=== PATIENT | male | born 1970 | race Caucasian/White ===

== ENCOUNTER 2020-12-14 11:05 | Emergency (ER) | payer OTHER, SELFPAY ==
[2020-12-14 11:06] VITALS: BP 122/74; PULSE 78; RESP 16; TEMP 35.8; O2SAT 98; BMI 32.6
--- NOTE | 2020-12-14 11:23 | EKG12_ITS ---
Test Reason : SOB Blood Pressure : / mmHG Vent. Rate : 073 BPM Atrial Rate : 073 BPM P-R Int : 142 ms QRS Dur : 092 ms QT Int : 356 ms P-R-T Axes : 015 002 014 degrees QTc Int : 392 ms Normal sinus rhythm Normal ECG Confirmed by LISSA GRADY, ULISES ([id number]), digital editor EDDIE FERNANDEZ ([id number]) on 12/16/2020 11:40:10 A M Referred By: DARBY Confirmed By:NYLA ALCARAZ MD
--- NOTE | 2020-12-14 11:25 | EX.ED.DYSGE1 ---
HPI History of Present Illness Chief Complaint: Cold Sx Informant: patient Onset/Context/Timing Onset: Days (10 days) Context: Gradual Onset Timing: Waxes and wanes Current Severity: Mild Maximum Severity: Moderate Narrative Narrative: Patient presents with cough and shortness of breath. He believes he is getting over Covid. He has been ill for the past 10 days. He reports generalized fatigue, cough, shortness of breath. Today his shortness of breath and cough turned more painful and this concerned him. He has had low-grade fevers throughout his illness. He states his taste actually returned today. PFSH PFSH no medical history Home Medications dexamethasone [Decadron] 6 mg PO DAILY #5 tab 12/14/20 [Rx Last Taken Unknown] Allergy/AdvReac Type Severity Reaction Status Date / Time No Known Allergies Allergy Verified 12/14/20 11:09 Social History Smoking Status: Never smoker ROS ROS ED Constitutional Constitutional ED: Reports fever(s); Denies chills Eyes Eyes: Denies change in vision ENT ENT ED: Denies ear pain or rhinorrhea Cardiovascular Cardiovascular: Reports chest pain; Denies palpitations or racing heartbeat Respiratory/Chest Respiratory/Chest: Reports cough and dyspnea; Denies dyspnea on exertion or sputum Gastrointestinal Gastrointestinal: Denies abdominal pain, diarrhea, nausea or vomiting Genitourinary Genitourinary ED: Denies dysuria Integumentary Denies rash Neurologic Neurologic: Denies headache(s) Psychiatric Psychiatric: Denies anxiety Endocrine Endocrinology: Denies polydipsia or polyuria EXAM Physical Exam Const Vital Signs: 12/14/20 11:06 12/14/20 11:37 12/14/20 12:07 Temperature 96.5 F L Temperature Source Temporal Pulse Rate 78 80 Respiratory Rate 16 17 Respiratory Effort Normal Non-Labored Respiratory Pattern Normal Normal Blood Pressure 122/74 H Blood Pressure Mean 90 Pulse Ox 98 97 Oxygen Delivery Method Room Air Room Air 12/14/20 13:06 12/14/20 13:09 12/14/20 14:08 Temperature 98.3 F Temperature Source Oral Pulse Rate 69 69 78 Respiratory Rate 16 16 16 Respiratory Effort Respiratory Pattern Blood Pressure 99/82 H 99/82 H 121/83 H Blood Pressure Mean 87 87 Pulse Ox 98 98 96 Oxygen Delivery Method Room Air Positive well nourished and well developed General Appearance ED: well developed HEENT Reports moist mucous membranes Eyes PERRL and EOMs intact bilaterally Neck no lymphadenopathy and supple Chest Wall inspection of chest normal and palpation of chest normal Resp normal respiratory effort and clear to auscultation bilaterally Cardio regular rate and regular rhythm GI normal to inspection, nondistended, normoactive bowel sounds and non-tender Extremity normal to inspection General Extremety ED: Yes tenderness Neuro oriented x3 Sensorium / Orientation: alert Skin no rashes or lesions noted MDM MDM MDM Narrative Medical decision making narrative: Patient placed on registered nurse cardiac. Patient's O2 sat remained in the mid 90s throughout his ED stay. Lab Data Attestation: I reviewed the patient's lab results. Labs: Laboratory Results - last 24 hr 12/14/20 12/14/20 12/14/20 11:35 11:47 11:47 WBC 2.6 L RBC 4.86 Hgb 14.7 Hct 44.1 MCV 90.7 MCH 30.2 MCHC 33.3 RDW Std Deviation 39.8 RDW Coeff of Bulmaro 12.0 Plt Count 141 L MPV 9.8 Immature Gran % (Auto) 1.100 H Neut % (Auto) 58.6 Lymph % (Auto) 29.5 [place] % (Auto) 10.0 Eos % (Auto) 0.4 Baso % (Auto) 0.4 Absolute Neuts (auto) 1.5 L Absolute Lymphs (auto) 0.77 L Nucleated RBC % 0 D-Dimer Quant (PE/DVT) 0.72 H* Sodium Potassium Chloride Carbon Dioxide Anion Gap BUN Creatinine Estim Creat Clear Calc Est GFR (MDRD) Af Amer Est GFR (MDRD) Non-Af BUN/Creatinine Ratio Glucose Calcium COVID-19 ([facility]) Detected 12/14/20 11:47 WBC RBC Hgb Hct MCV MCH MCHC RDW Std Deviation RDW Coeff of Bulmaro Plt Count MPV Immature Gran % (Auto) Neut % (Auto) Lymph % (Auto) [place] % (Auto) Eos % (Auto) Baso % (Auto) Absolute Neuts (auto) Absolute Lymphs (auto) Nucleated RBC % D-Dimer Quant (PE/DVT) Sodium 140 Potassium 4.1 Chloride 105 Carbon Dioxide 31.0 Anion Gap 4 L BUN 11 Creatinine 0.99 Estim Creat Clear Calc 87.32 Est GFR (MDRD) Af Amer 104 Est GFR (MDRD) Non-Af 86 BUN/Creatinine Ratio 11.1 Glucose 76 Calcium 9.0 COVID-19 ([facility]) Radiography Chest X-Ray - ED: 1 View, Read by ED Physician, Normal, Heart, Lungs and Mediastinum Diagnostic Testing: Radiology Impression Chest X-Ray 12/14/20 12:01 IMPRESSION: Normal x-ray examination of the chest. Electronically Signed: Severo Duarte MD at 12:28 EDT , Service support , Chest CTA 12/14/20 13:21 IMPRESSION: No demonstrated PE, or thoracic aortic aneurysm or dissection Diffuse interstitial and airspace opacifications, in the periphery of both lung arreaga. No demonstrated effusions. Differential as described above Chronic bronchitis Electronically Signed: Severo Duarte MD at 13:40 EDT , Service support , EKG Initial EKG: Attestation: I personally reviewed and interpreted this EKG as follows: Interpretation: Sinus Rhythm (Sinus at 73 with no acute ischemia.) Treatment and Re-Evaluation Comments:: Test results discussed with the patient. CBC does reveal leukopenia consistent with a viral infection. D-dimer is elevated. CTA of the chest reveals no evidence of PE but diffuse interstitial and airspace opacifications in the periphery. This is all consistent with Covid. Covid PCR still pending at this time. Patient is not hypoxic and can be treated at home. Patient will be given Decadron here with 4 additional days at home. He has a pulse ox meter and was given return instructions. Addendum: Patient's Covid PCR later returned positive. I did call the patient to update him on his findings. Discharge Plan Triage Chief Complaint: Cold Sx ED Provider: Arcelia Cardona Dx/Rx/DC Orders Clinical Impression: Acute viral syndrome, COVID-19 Instructions: Coronavirus Disease 2019 (COVID-19): Overview, Coronavirus Disease 2019 (COVID-19): Caring for Yourself or Others, ED Viral Syndrome (Adult) Prescriptions: New dexamethasone [Decadron] 6 mg tablet 6 mg PO DAILY Qty: 5 RF: 0 Primary Care Provider: Care Physician,No Primary Referrals: Claribel Smith MD [STAFF PHYSICIAN] - 1-2 Weeks Care Physician,No Primary [Primary Care Provider] - Disposition Disposition: Home, self care Discharge Date/Time: 12/14/20 14:10
--- NOTE | 2020-12-14 11:30 | NURSING ---
NO OLD EKGS
[2020-12-14] MEDS: dexAMETHasone 4 MG Tablet 6 MG PO (11:41)
[2020-12-14 12:01] LABS: Absolute Lymphocyte Count 0.77 X10^3/uL (0.83-4.51); Absolute Neutrophil Count 1.5 X10^3/uL (2.0-7.7); Basophil# 0.01 X10^3/uL; Basophil% 0.4 % (0-1); Eosinophil# 0.01 X10^3/uL; Eosinophils% 0.4 % (0-5); Hematocrit 44.1 % (40-54); Hemoglobin 14.7 g/dL (13.0-16.5); Lymphocyte # 0.77 X10^3/ul (0.83-4.51); Lymphocyte % 29.5 % (19-41); Mean Corp Hgb Conc 33.3 g/dL (32-36); Mean Corpuscular Hgb 30.2 pg (27.0-32.0); Mean Corpuscular Volume 90.7 fL (80-94); Mean Platelet Vol. 9.8 fl (6.2-12.0); Monocyte# 0.26 X10^3/uL; NRBC Flagged by Analyzer 0 % (0-5); Neutrophil # 1.53 X10^3/uL (2.7-7.7); Neutrophil % 58.6 % (47-70); Platelet Count 141 K/mm3 (150-450); RBC Distribution Width SD 39.8 fl (35.1-43.9); Red Blood Count 4.86 M/mm3 (4.6-6.2); White Blood Count 2.6 K/mm3 (4.4-11.0)
--- NOTE | 2020-12-14 12:01 | RAD_ITS ---
STUDY: X-RAY CHEST REASON FOR EXAM: Male, 50 years old. Substernal chest pain TECHNIQUE: Single AP portable view of the chest. COMPARISON: None. FINDINGS: EKG leads overlie the chest The lungs are clear and expanded. There is no demonstrated pleural abnormality. Normal size heart. Normal mediastinum and kailey. Normal visualized pulmonary arteries. Normal visualized aortic arch and descending thoracic aorta. Normal visualized thoracic spine. Normal visualized ribs, clavicles, and shoulders. There is no demonstrated abnormality of the visualized soft tissue structures of the upper abdomen. RAD/Chest 1 View (Portable) IMPRESSION: Normal x-ray examination of the chest. Electronically Signed: Severo Duarte MD at 12:28 EDT , Service support ,
[2020-12-14] MEDS: Albuterol Sulfate 8 gm Inhaler (60 puffs) 2 PUFF INHALATION (12:03)
[2020-12-14 12:07] VITALS: PULSE 80; RESP 17; O2SAT 97
[2020-12-14 12:13] LABS: Anion Gap 4 (5-15); BUN 11 mg/dL (7-18); BUN/Creat Ratio 11.1 RATIO (10-20); Chloride 105 mmol/L (98-107); Creatinine, Serum 0.99 mg/dL (0.70-1.30); EST Glomerular Filtration Rate 86 mL/min (>60); Est Glom Filt Rate - Afr Amer 104 mL/min (>60); Estimated Creatinine Clearance 87.32 ml/min; Glucose 76 mg/dL (74-106); Potassium 4.1 mmol/L (3.5-5.1); Sodium Level 140 mmol/L (136-145)
[2020-12-14 12:23] LABS: D-Dimer Quantitative (DVT/PE) 0.72 FEU/ug/m (0.27-0.49)
[2020-12-14 13:06] VITALS: BP 99/82; PULSE 69; RESP 16; O2SAT 98
[2020-12-14 13:09] VITALS: BP 99/82; PULSE 69; RESP 16; TEMP 36.8; O2SAT 98
--- NOTE | 2020-12-14 13:21 | CT_ITS ---
STUDY: CTA CHEST REASON FOR EXAM: Male, 50 years old. Worsening shortness of breath RADIATION DOSAGE (If Supplied By Facility): CTDIvol = ( 10.52 ) mGy, DLP = ( 419.05 ) mGycm TECHNIQUE: The examination was performed with the intravenous administration of IV 100ML ISOVUE 370. Post-processing of the angiographic images was performed, with multiplanar reformation and 3D reconstruction. Individualized dose optimization techniques were used for this CT. COMPARISON: None. FINDINGS: Normal enhancement of the main pulmonary artery and right and left pulmonary arteries. Normal enhancement of the bilateral peripheral pulmonary arteries. There is no demonstrated pulmonary embolism. Normal thoracic aorta and visualized great vessels. There is no demonstrated aortic dissection. Normal heart and pericardium. Normal mediastinum. Normal hilar regions. There is peribronchial thickening. The lungs are well expanded. Diffuse patchy interstitial and airspace opacifications predominantly in the periphery of both lung arreaga without effusions, this pattern of opacification is most consistent with Covid pneumonia, though this could also be seen with multifocal pneumonitis or drug interaction/toxicity Normal pleura. Normal chest wall structures. Normal osseous structures. Normal visualized upper abdomen. CT/CTA Chest W/WO Contrast IMPRESSION: No demonstrated PE, or thoracic aortic aneurysm or dissection Diffuse interstitial and airspace opacifications, in the periphery of both lung arreaga. No demonstrated effusions. Differential as described above Chronic bronchitis Electronically Signed: Severo Duarte MD at 13:40 EDT , Service support ,
[2020-12-14 14:08] VITALS: BP 121/83; PULSE 78; RESP 16; O2SAT 96
--- NOTE | 2020-12-14 14:08 | ED.RN ---
PT GIVEN WRITTEN AND VERBAL DISCHARGE INSTRUCTIONS, EDUCATED ON INFORMATION IN DISCHARGE INSTRUCTIONS AND HOME GOING PRESCRIPTIONS. PT TAKES INHALER HOME WITH SPACER ADVISED PER DR. PATEL, 2 PUFF EVERY FOUR HOURS NEEDED FOR SOB. PT DRESSES SELF, IV D/C AND COVERED WITH 2X2 GAUZE AND PAPER TAPE. PT AMBULATES OUT OF DEPT BY SELF.
== END 2020-12-14 14:10 | disposition home or self-care (01) ==
PROVIDERS: Emergency Provider Emergency Medicine
DX: U07.1 COVID-19 (principal)
CPT/HCPCS: 71045; 71275; 80048; 85025; 85379; 87635; 93005; 94640; 99285; Q9967; A4216; U0002

== ENCOUNTER 2022-07-19 17:27 | Emergency (ER) | payer SELFPAY ==
[2022-07-19 17:28] VITALS: BP 128/76; PULSE 61; RESP 16; TEMP 36.3; O2SAT 98; BMI 33.0
[2022-07-19 18:45] LABS: Bacteria 0 SEEN /hpf (None Seen); Mucous, Urine 0 SEEN /hpf (<or=2+)
[2022-07-19 18:47] LABS: Color, Urine Yellow (Yellow); Glucose, Dipstick Normal (Normal); Ketone-Dipstick Negative (Negative); Leukocyte Esterase-Dipstick 25 /ul (Negative); Nitrite-Dipstick Negative (Negative); Occult Blood-Urine 150 /ul (Negative); Protein-Dipstick 15 mg/dl (Negative); Specific Gravity, Urine 1.015 (1.002-1.030); Urine Bilirubin Dipstick Negative (Negative); Urine Clarity Sl. Cloudy (Clear); Urine Urobilinogen 1 mg/dl (Normal)
--- NOTE | 2022-07-19 18:49 | EDS_ITS ---
HPI History of Present Illness Chief Complaint: Male Pain/Injury Informant: patient Narrative Narrative: Patient presents with penile bleeding. He states he was having intercourse last night. He missed the marquise and the penis hit firmly into his partner. He st ates he did not really have pain but he had blood come from the penis. He states it was not ejaculation but it was blood. Since then he has had a small amount of blood occasionally at the tip of the penis but no active bleeding. He states when he urinates he may see a little blood with the first few drops but after that it is normal yellow color. It does not hurt to urinate. It is not difficult to urinate. He is not having penile pain. He states there is a small amount of bruising at the tip but it is not expanded. He has not attempted to have another erection. No history of prior injuries or trauma. No discharge other than a small occasional amount of blood. This is decreasing. PFSH PFSH Medical History no medical history Home Medications dexamethasone 6 mg tablet (Decadron) 6 mg PO DAILY #5 tabs 12/14/20 [Rx Last Taken Unknown] Allergy/AdvReac Type Severity Reaction Status Date / Time No Known Allergies Allergy Verified 07/19/22 17:28 Social History Smoking Status: Never smoker ROS ROS ED Constitutional Constitutional ED: Denies chills or fever(s) Gastrointestinal Gastrointestinal: Denies abdominal pain, nausea or vomiting Genitourinary Genitourinary ED: Reports other Details: See history of present illness. ; Denies dysuria or urinary frequency Musculoskeletal Musculoskeletal: Denies back pain Integumentary Denies rash Neurologic Neurologic: Denies paresthesias or weakness Endocrine Endocrinology: Denies polydipsia or polyuria Hematologic/Lymphatic Hematologic/Lymphatic: Denies easy bleeding or easy bruising Allergic/Immunologic Allergic/Immunologic ED: Denies urticaria EXAM Physical Exam Const Vital Signs: 07/19/22 17:28 Temperature 97.3 F L Temperature Source Temporal Pulse Rate 61 Respiratory Rate 16 Blood Pressure 128/76 H Blood Pressure Mean 93 Pulse Ox 98 Oxygen Delivery Method Room Air Positive well nourished and well developed Constitutional Narrative: Patient sitting quietly on the bed. He looks comfortable General Appearance ED: well developed and NAD HEENT Reports moist mucous membranes HEENT Narrative: No petechiae trauma Resp normal respiratory effort Cardio regular rate GI non-tender, non-distended and no masses no CVA tenderness Narrative: Penis looks normal size shape. There is no deformity. There is no swelling. There is a small amount of ecchymosis just at the edge of the meatus on the right side only. I do not see a laceration inside. There is no blood at the tip at this time. There is no tenderness. There is no mass. Urine that is on the counter is pale yellow but no sign of blood. Back/Spine no CVA tenderness Extremity normal to inspection Neuro oriented x3 Skin Lesions: no lesions MDM MDM MDM Narrative Medical decision making narrative: Patient's urine shows a few red cells but no sign of infection. Clinically, this urine is medium yellow. It was not cloudy for what I saw on the counter. We did not have a urologist on-call tonight. So I was finally able to get hold of 1 that is through [facility]. I discussed the case with Dr. Pleitez. Considering that there is no swelling or pain or heavy bleeding he would not take this person in the OR acutely. This is also almost 24 hours old. This is not consistent with an acute penile fracture. As long as he is urinating, not swelling, not having pain he can follow-up. Patient does have an appointment with the urologist at [facility] on the . I explained he should keep this. Patient also now states that he had a similar event sometime in the past where the penis did appear to be bent afterwards but he states that resolved. It is not bent now. There is no deformity at all. There is no swelling. The total area of external ecchymosis is likely about 3 x 6 mm. Lab Data Attestation: I reviewed the patient's lab results. Labs: Laboratory Results - last 24 hr 07/19/22 18:40 Urine Color Yellow Urine Clarity Sl. Cloudy Urine pH 7.0 Ur Specific [place] 1.015 Urine Protein 15 H Urine Glucose (UA) Normal Urine Ketones Negative Urine Occult Blood 150 H Urine Nitrite Negative Urine Bilirubin Negative Urine Urobilinogen 1 H Ur Leukocyte Esterase 25 H Urine RBC 10-25 SEEN Urine WBC 0-5 SEEN Ur Squamous Epith Cells 0-5 SEEN Amorphous Sediment 1+ PHOS Urine Bacteria 0 SEEN Urine Mucus 0 SEEN Discharge Plan Triage Chief Complaint: Male Pain/Injury ED Provider: Barry Ray Dx/Rx/DC Orders Clinical Impression: Penile trauma Prescriptions: No Action dexamethasone [Decadron] 6 mg tablet 6 mg PO DAILY Qty: 5 0RF Primary Care Provider: Care Physician,No Primary Referrals: Care Physician,No Primary [Primary Care Provider] - Activity Restrictions/Additional Instructions: Follow-up with the urologist as scheduled on the . Return with pain, bruising, difficulty urinating, swelling or any other concerns. Disposition Disposition: Home, Self Care
[2022-07-19 18:54] LABS: Amorphous Sediment 1+ PHOS; Red Blood Cells-Urine 10-25 SEEN /hpf (0-5); Squamous Epithelial Cells - UA 0-5 SEEN /hpf (0-5); White Blood Cells 0-5 SEEN /hpf (0-5)
== END 2022-07-19 20:29 | disposition home or self-care (01) ==
PROVIDERS: Emergency Provider Emergency Medicine; Visit Provider Emergency Medicine
DX: S30.21XA Contusion of penis, initial encounter (principal); N48.89 Other specified disorders of penis; X58.XXXA Exposure to other specified factors, initial encounter
CPT/HCPCS: 81001; 99282